=== PATIENT | female | born 1975 | race Caucasian/White ===

== ENCOUNTER 2016-07-24 18:17 | Emergency (ER) | payer BC ==
[2016-07-24 20:19] VITALS: BP 103/77
--- NOTE | 2016-07-24 20:30 | UC ---
Skin Complaint HPI - HPI Summary HPI Summary: The patient comes in today for: 1. Stray cat bite to left DIP joint area of the left index finger. Onset: 3 hours ago. Palliative/provocative: Nothing makes the joint better or worse including full flexion. Quality: No pain. Region: Dorsum of the DIP joint of the left index finger. Severity: 0/10 Time: Constant. Associated symptoms: There was a little bit of blood with the bite. She does not know how deep the bite was. Last tetanus: More than 10 years ago. * - History of Current Complaint Chief Complaint: UCBiteInjury Time Seen by Provider: 07/24/16 20:21 Stated Complaint: CAT BITE Hx Obtained From: Patient Hx Last Menstrual Period: 06/28/16 - Allergy/Home Medications Allergies/Adverse Reactions: Allergies Allergy/AdvReac Type Severity Reaction Status Date / Time ENVIRONMENTAL Allergy Rash Uncoded 07/24/16 20:19 Home Medications: Home Medications DOXYcycline CAP(*) [DOXYcycline 100MG CAP(*)] 100 mg PO BID 07/24/16 [History Confirmed 07/24/16] Review of Systems Constitutional: Negative Skin: Negative Eyes: Negative ENT: Negative Respiratory: Negative Cardiovascular: Negative Gastrointestinal: Negative Genitourinary: Negative All Other Systems Reviewed And Are Negative: Yes PMH/Surg Hx/FS Hx/Imm Hx Previously Healthy: No - Various pain syndrome, and Lyme disease. Endocrine History Of: Denies: Diabetes, Thyroid Disease, Hyperthyroidism, Hypothyroidism, Dyslipidemia Cardiovascular History Of: Denies: Cardiac Disorders, Hypertension, Pacemaker/ICD, Myocardial Infarction , Congestive Heart Failure, Atrial Fibrillation, Deep Vein Thrombosis, Bleeding Disorders Respiratory History Of: Denies: COPD, Asthma, Bronchitis, Pneumonia, Pulmonary Embolism GI/ History Of: Denies: Gastroesophageal Reflux, Ulcer, Gastrointestinal Bleed, Gall Bladder Disease, Kidney Stones, Diverticulitis, Renal Disease, Urosepsis Neurological History Of: Denies: TIA, CVA, Dementia, Seizures, Migraine Psychological History Of: Reports: Anxiety, Depression - ON MEDS Denies: Bipolar Disorder, Schizophrenia, Post Traumatic Stress Disorder Cancer History Of: Denies: Lung Cancer, Colorectal Cancer, Breast Cancer, Prostate Cancer, Cervical Cancer Other History Of: Negative For: HIV, Hepatitis B, Hepatitis C, Anticoagulant Therapy - Surgical History Surgical History: Yes Surgery Procedure, Year, and Place: RIGHT SHOULDER BURSECTOMY 2011. [facility] 2016 - Family History Known Family History: Negative: Cardiac Disease, Hypertension - Social History Occupation: Employed Full-time Alcohol Use: None Substance Use Type: None Smoking Status (MU): Smoker, Current Status Unknown Type: Cigarettes When Did the Patient Quit Smoking/Using Tobacco: 2 weeks ago Household Exposure Type: Cigarettes - Immunization History Most Recent Influenza Vaccination: no Physical Exam Triage Information Reviewed: Yes Appearance: Well-Appearing, No Pain Distress, Well-Nourished Vital Signs: Initial Vital Signs Temp 98.5 F 07/24/16 20:13 Pulse 93 07/24/16 20:13 Resp 16 07/24/16 20:13 BP 103/77 07/24/16 20:13 Pulse Ox 99 07/24/16 20:13 Vital Signs Reviewed: Yes Eyes: Positive: Conjunctiva Clear. Negative: Discharge ENT: Positive: Hearing grossly normal. Negative: Pharyngeal erythema, Nasal congestion, Nasal drainage, TM bulging, TM dull, TM red, Tonsillar swelling, Tonsillar exudate Dental: Negative: Gross Decay/Caries @, Dental Fracture @ Neck: Positive: Supple, Nontender, No Lymphadenopathy. Negative: Nuchal Rigidity Respiratory: Positive: Chest non-tender, Lungs clear, No respiratory distress, No accessory muscle use. Negative: Rhonchi, Wheezing Cardiovascular: Positive: RRR, No Murmur Abdomen Description: Positive: Nontender, No Organomegaly, Soft. Negative: Distended, Guarding Musculoskeletal: Positive: Strength Intact, ROM Intact Neurological: Positive: Alert, Muscle Tone Normal Psychological: Positive: Age Appropriate Behavior, Consolable Skin: Positive: Other - Left distal index finger. There is a small (1-2 mm) puncture wound directly over the DIP joint. No marked redness or swelling. Full flexion with no discomfort.. Negative: rashes, breakdown Course/Dx - Course Course Of Treatment: Patient was told that I was concerned that one of the needle like teeth of the cat penetrated into the joint space and may be settting the patient up for a septic arthritis despite her being on doxycycline. She agreed to treatment with Augmentin along with her doxycycline (for Lyme disease) and Boostrix. - Differential Diagnoses - Skin Complaint Differential Diagnoses: Cellulitis, Impetigo - Diagnoses Provider Diagnoses: Cat bite to the DIP joint of the left index finger. Discharge - Discharge Plan Condition: Stable Disposition: HOME Patient Education Materials: Animal Bite (ED) Referrals: Kiel Joseph MD [Primary Care Provider] - If Needed (Follow up with your primary care provider if you don't continue to do well. If you do well, just finish the antibiotics. ) Additional Instructions: Watch for: 1. Increasing redness 2. Increasing pain 3. Increasing swelling 4. discharge If you see these, please be re-evaluated. The [facility] Department filled out by patient.
[2016-07-24] MEDS ORDERED: Amoxicillin/Clavulanate TAB* 875 MG PO ONE (20:37)
[2016-07-24] MEDS ORDERED: Tetan/Diph/Pertus SYR(Tdap)* 0.5 ML SYR(BOOSTRIX) use SYR IM ONE (20:38)
== END 2016-07-24 21:00 | disposition home or self-care (01) ==
LOC: UCCORT 18:17
DX: S61.231A Puncture wound without foreign body of left index finger without damage to nail, initial encounter (principal); W55.01XA Bitten by cat, initial encounter; Y93.9 Activity, unspecified; Y92.9 Unspecified place or not applicable; Z23 Encounter for immunization; F41.8 Other specified anxiety disorders; Z72.0 Tobacco use
CPT/HCPCS: 90471; 90715; 99212; A9270-GY; G0463

== ENCOUNTER 2016-11-03 18:34 | Inpatient (IN) | payer BC ==
[2016-11-03 20:36] LABS: Hematocrit 43 % (35-47); Hemoglobin 14.1 g/dl (12.0-16.0); Mean Corpuscular HGB Conc 33 g/dl (31-36); Mean Corpuscular Hemoglobin 28 pg (27-31); Mean Corpuscular Volume 87 fL (80-97); Mean Platelet Volume 7 um3 (7.4-10.4); Red Blood Count 4.98 10^6/ul (4.0-5.4); Red Cell Distribution Width 15 % (10.5-15); White Blood Count 13.3 10^3/ul (3.5-10.8)
[2016-11-03 20:50] LABS: BUN/Creatinine Ratio 38.5 (8-20); Calcium 10.4 mg/dL (8.6-10.3); EGFR African American 105.7 (>60); EGFR Non-African American 82.2 (>60); Potassium 3.3 mmol/L (3.5-5.0)
--- NOTE | 2016-11-03 21:11 | RAD ---
INDICATION: Altered mental status COMPARISON: None. TECHNIQUE: Contiguous axial sections of the brain were obtained from the skull base to the vertex without contrast. FINDINGS: The ventricles, cisterns and sulci are within normal limits. The cleary-white matter differentiation is adequately maintained and there is no sulcal effacement. No significant focal abnormality or mass effect is present. There is no evidence for intracranial hemorrhage. No significant focal osseous abnormality is present. The visualized portion of the paranasal sinuses and mastoid air cells appear clear. IMPRESSION: Normal CT of the brain.
[2016-11-03 21:19] LABS: Urine Bacteria Absent (Absent); Urine Bilirubin Negative (Negative); Urine Glucose Negative (Negative); Urine Nitrite Negative (Negative)
[2016-11-03] MEDS ORDERED: NS 0.9% 1000 ML*IV.FLUID IV ONE (21:28)
[2016-11-03] MEDS ORDERED: Sulfamethox/Trimethoprim DS 800/160* TAB PO ONE (21:29)
[2016-11-03] MEDS ORDERED: NS 0.9% 1000 ML* 1,000 ML IV ONE (21:29)
[2016-11-03 21:42] LABS: Benzodiazepine Urine Screen None Detected (None Detect)
[2016-11-04 00:44] LABS: Acetaminophen < 15 mcg/mL; Alcohol < 10 mg/dL (<10); Salicylate < 2.50 mg/dL (<30)
[2016-11-04] MEDS ORDERED: Al Hydrox/Mg Hydrox/Simet LIQ* 30 ML UDC PO PRN (02:46)
[2016-11-04] MEDS ORDERED: Acetaminophen TAB* 325 MG PO PRN (02:46)
[2016-11-04] MEDS ORDERED: ALPRAZolam TAB* 0.5 MG PO PRN (02:47)
--- NOTE | 2016-11-04 02:53 | ED ---
Michael Bain Soohyun, scribed for Al Allen MD on 11/04/16 at 0221 . Progress - Progress Note Progress Note: Signed out at shift change. 9.39 Involuntary admission. Paperwork signed. Pt is stable during ED course and MHE. - Consult/PCP Time Called: 01:57 Course/Dx - Diagnoses Provider Diagnoses: Depression, Suicide ideation The documentation as recorded by the Michael lenz Soohyun accurately reflects the service I personally performed and the decisions made by me, Al Allen MD.
[2016-11-04] MEDS ORDERED: buPROPion SR TAB.SR* 150 MG PO SCH (09:00)
[2016-11-04] MEDS: Vitamin THERAPEUTIC TAB PO SCH (09:10)
[2016-11-04] MEDS: Venlafaxine EXT RELEASE CAP* 75 MG PO SCH (09:13)
--- NOTE | 2016-11-04 17:15 | HP ---
H&P (Free Text) History and Physical: HPI: ---- Patient is a 41yo female with PPHx significant for MDD(Treatment Resistant Depression) with catatonic features, Unspecified Anxiety d/o, Benzodiazepine use d/o, and Anorexia Nervosa who presents catatonic to the [facility] brought in by patient' s mother. Patient was found sitting in the [facility] [place] where she works, likely in a catatonic state since parking there before work. On interview, patient is responsive, but details are gained primarily from patient's who is present for interview. Patient is being treated concurrently for multiple MH issues at 3 clinics. Patient seen at [facility] for ongoing treatment of symptoms of anorexia. Per , patient's weight has improved but patient continues to restrict food and has low po intake. Patient is amenable to Nutrition consult. Patient seen by Dr. Armstrong( psychotherapy) and Dr. Stephenson(psychiatry) in [place], [place]. At this clinic patient is seen for mx of TRD and Anxiety disorder. Patient reports hx of being Rx'd Xanax and Klonopin. In the last month, Xanax was changed to Klonopin as providers at the ECT clinic at [facility] noted poor seizure activity. reports patient has hx of Catatonic episodes, but reports since start of most recent course of ECT last month, these episodes have become more frequent and are associated with an intense gaze, exophthalmic in description and demonstrating a more disorganized/ disoriented TP during her Catatonic episodes. Patient completed her 10th ECT session on Thursday10/31/16 and scheduled for th on Thursday and final session on Thursday11/05/16. CMP ordered as add-on for evaluation of liver and kidney function in setting of Anorexia Nervosa symptoms. TSH, Free T34/T4 ordered as add-on as Thyroid studies not done in ED. Patient reports no hx abuse of alcohol and denies use of illicit substances being involved in this clinical picture. Patient rates the intensity of depression she feels currentlty as 5/10. She reports significant anxiety, but reports no YANEZ, CP, Abd pain or issues with tremor, sweats or other symptoms of Benzo w/d. She endorses recent insomnia and has demonstrating disorganized TP during her Catatonic episodes. Patient reports psychotropic med compliance. Patient denies hx of physical, emotional, or sexual abuse. Patient reports no symptoms of psychosis, nor were any elicited on interview. Past Psych Hx: Inpt - This is patient's 1st Outpt - Patient seen at [facility]. Patient seen by Dr. Armstrong(psychotherapy) and Dr. Stephenson( psychiatry) in [place], [place]. Patient also seen in ECT clinic at [facility]. Suicide attempt Hx / SIB Hx: Patient denies hx of suicide attempt. Patient reports ongoing hx of food restricting and over-exercise. Trauma Hx: Patient denies hx of physical, emotional, or sexual abuse. Substance Hx: Patient denies hx of alcohol abuse and denies hx of illicit substance abuse. Patient has a recent DUI, but was dropped as it was found to be due to a medical condition in the context of Rx Xanax use. Medical Hx: S/P Course of 10 ECT sessions, last on Thursday10/31/16. Denies hx of Seizure d/o. Denies hx of Head Trauma with LOC. Medication Allergies: NONE Family Hx: Patient denies hx of suicide in her family. Social Hx: --------- Patient is to supportive . Patient has minor children in her home. Patient is currently employed. Patient reports no firearms in the home. Patient reports no stockpiles of old Rx pills in the home. Home Meds: S/P Course of 10 ECT sessions, last on Thursday10/31/16 Home Medications Medication Instructions Recorded Confirmed Type RX: Venlafaxine EXT RELEASE CAP* 300 mg PO DAILY 09/07/14 11/03/16 History [Effexor Xr CAP*] RX: buPROPion SR TAB* [Wellbutrin 300 mg PO DAILY 09/07/14 11/03/16 History SR TAB*] Alprazolam [Xanax] 1 mg PO TID PRN 11/03/16 11/03/16 History Quetiapine Fumarate [Seroquel] 400 mg PO BEDTIME 11/03/16 11/03/16 History Vitals: ------ Vital Signs (72 hours) 11/03/16 11/03/16 11/03/16 18:39 19:45 20:34 Temperature 98.1 F 97.3 F Pulse Rate 96 74 69 Respiratory 16 16 16 Rate Blood Pressure 108/73 100/73 107/72 (mmHg) O2 Sat by Pulse 100 96 Oximetry 11/04/16 11/04/16 11/04/16 02:50 08:08 10:47 Temperature 98.4 F 98.2 F Pulse Rate 71 81 Respiratory 16 16 16 Rate Blood Pressure 96/60 105/77 (mmHg) O2 Sat by Pulse 98 100 Oximetry LABS: ----- Laboratory Tests 11/03/16 11/03/16 11/03/16 20:22 20:22 20:54 WBC 13.3 H RBC 4.98 Hgb 14.1 Hct 43 MCV 87 MCH 28 MCHC 33 RDW 15 Plt Count 447 MPV 7 L Sodium 140 Potassium 3.3 L Chloride 103 Carbon Dioxide 30 Anion Gap 7 BUN 30 H Creatinine 0.78 Est GFR ( Amer) 105.7 Est GFR (Non-Af Amer) 82.2 BUN/Creatinine Ratio 38.5 H Glucose 114 H Calcium 10.4 H Urine Color Yellow Urine Appearance Cloudy Urine pH 6.0 Ur Specific Newton 1.031 H Urine Protein 1+(30 mg/dl) H Urine Ketones Negative Urine Blood Negative Urine Nitrate Negative Urine Bilirubin Negative Urine Urobilinogen Negative Ur Leukocyte Esterase Trace H Urine WBC (Auto) 2+(11-20/hpf) H Urine RBC (Auto) Absent Ur Squamous Epith Cells Present H Urine Bacteria Absent Urine Glucose Negative Salicylates Urine Opiates Screen Acetaminophen Ur Barbiturates Screen Ur Phencyclidine Scrn Ur Amphetamines Screen U Benzodiazepines Scrn Urine Cocaine Screen U Cannabinoids Screen Serum Alcohol 11/03/16 11/04/16 20:54 20:22 WBC RBC Hgb Hct MCV MCH MCHC RDW Plt Count MPV Sodium Potassium Chloride Carbon Dioxide Anion Gap BUN Creatinine Est GFR ( Amer) Est GFR (Non-Af Amer) BUN/Creatinine Ratio Glucose Calcium Urine Color Urine Appearance Urine pH Ur Specific Newton Urine Protein Urine Ketones Urine Blood Urine Nitrate Urine Bilirubin Urine Urobilinogen Ur Leukocyte Esterase Urine WBC (Auto) Urine RBC (Auto) Ur Squamous Epith Cells Urine Bacteria Urine Glucose Salicylates < 2.50 Urine Opiates Screen None detected Acetaminophen < 15 Ur Barbiturates Screen None detected Ur Phencyclidine Scrn None detected Ur Amphetamines Screen None detected U Benzodiazepines Scrn None detected Urine Cocaine Screen None detected U Cannabinoids Screen None detected Serum Alcohol < 10 PHYSICAL EXAM: Patient declines PE. Please see H&P documented in the [facility]: Psychiatric Complaint note dated 11/03/16. MSE: ----- Appearance - thin build female, fair hygeine, in moderate distress Behavior - +PMR, cooperative Speech - 1-2 word responses, prosody wnl, delayed, slow responses Eye Contact - intense Mood - "anxious" Affect - depressed TP - initially linear, but derails quickly TC - paucity, recently disorganized Perception - no signs of psychosis noted or reported Orientation - A&Ox2 Cognition - intact Attention - intact Insight - poor Judgement - poor SI / HI - denies both ASSESSMENT: 1. Benzodiazepine withdrawal with catatonic features 2. Benzodiazepine use d/o, severe 3. MDD, R, S with catatonic features (TRD - recent ECT mx) 4. Unspecified Anxiety d/o 5. Anorexia Nervosa PLAN: ------ 1. Continue admission to [facility] for safety and symptom mx. 2. CMP ordered as add-on for evaluation of liver and kidney function in setting of Anorexia Nervosa symptoms. 3. TSH, Free T34/T4 ordered as add-on as not done in ED. 4. Nutrition consulted for evaluation and management of nutrient(protein) intake in setting Anorexia Nervosa symptoms. 5. Continue Effexor at 300mg po daily for depressive symptoms. 6. Will lower dose of Wellbutrin from 300mg to 150mg po daily due to recent insomnia and the meds lowering of seizure threshold during patients current period of Benzo w/d. 7. Will D/C Xanax as patient has hx of use of more than Rx'd or at least oversedation leading to a recent DUI in [place]. 8. After conversion to a long acting Benzodiazepine, will start Klonopin 2mg po qam and 1mg po qhs, with plan to taper off benzodiazepines. 9. Will lower dose of Seroquel from 400mg to 300mg po qhs for insomnia as concomitant administration of Benzos and Seroquel may lead to symptoms of BONI. 10. Continue compiling collateral information from [facility] and providers(Dr. Armstrong and Kaykay ledesma) 11. Patient to participate in milieu activities and groups.
[2016-11-04] MEDS ORDERED: clonazePAM TAB(*) 1 MG PO ONE (19:42)
[2016-11-04] MEDS ORDERED: QUEtiapine TAB* 100 MG PO SCH (21:00)
[2016-11-04] MEDS: QUEtiapine TAB* 300 MG PO SCH (21:37)
--- NOTE | 2016-11-05 06:24 | PN ---
Subjective - Subjective Service Type: 82005 Hosp care 15 min low complexity Subjective: Patient visiting with her on my approach. and this provider are happy to see patient's noticeably improved affect and ability to engaged in conversation vs on admission to the unit yesterday. Patient's affect is full and patient smiles often during the interview. Patient is able to converse nmlly with spontaneous speech displaying linear and GD TP. Patient reports med compliance with Klonopin which is at equal conversion dose of her outpt Rx Xanax 1mg TID. Patient reports no s/e's on this or the lower doses of Seroquel and Wellbutrin. Patient reports the intensity of depression she feels is 3/10. She reports appetite and sleep were wnl yesterday/ today. Patient and report in clarification that patient had only over the past 2 days prior to admission been experiencing these episodes of catatonic features. clarifies that prior, especially during the days patient was not in ECT, patient had episodes of "drunk like states, slurring words and real confused". Patient and informed this was likely Xanax intoxication 2/2 poor po intake on the 1mg TID dose. Patient reports she was supposed to start Klonopin during her ECT course, but never did, only holding administration of Xanax the day before ECT. Patient denies SI/HI and AH/VH. Objective - Appearance Appearance: Thin Framed Dysmorphic Features: No Hygiene: Normal Grooming: Well Kept - Behavior Psychomotor Activities: Normal Exhibits Abnormal Movement: No - Attitude and Relatedness Attitude and Relatedness: Cooperative Eye Contact: Good - Speech Quality: Unpressured Latencies: Normal Quantity: Appropriate - Mood Patient's Decription of Mood: "Good" - Affect Observed Affect: Good Affect Consistent with: Euthymia - Thought Process Patient's Thought Process: Coherent Thought Content: No Passive Wish, No Suicidal Planning, No Homicidal Ideation, No Paranoid Ideation - Sensorium Experiencing Hallucinations: No, Sensorium is Clear Type of Hallucinations: Visual: No, Auditory: No, Command: No - Level of Consciousness Level of Consciousness: Alert Orientation: Yes Intact, Yes Orientated to Time, Yes Orientated to Place, Yes Orientated to Person - Impulse Control Impulse Control: Intact - Insight and Judgement Insight and Judgement: Fair - Group Participation Particating in Group Activities: Yes - Medication Management Medication Management Adherence: Yes Assessment - Assessment Merits Inpatient Hospitalization: For Immediate Safety, For Stabilization Inpatient DSM-IV Dx: 1. Benzodiazepine withdrawal with catatonic features. 2. Benzodiazepine use d/o, severe. 3. MDD, R, S with catatonic features (TRD - recent ECT mx). 4. Unspecified Anxiety d/o. 5. Anorexia Nervosa Plan - Plan Treatment Plan: Name: PARVEEN CARRANZA Birthdate: 1975 [id number] PLAN: ------ 1. Continue admission to [facility] for safety and symptom mx. 2. CMP ordered as add-on for evaluation of liver and kidney function in setting of Anorexia Nervosa symptoms. 3. TSH, Free T34/T4 ordered as add-on as not done in ED. 4. Nutrition consulted for evaluation and management of nutrient(protein) intake in setting Anorexia Nervosa symptoms. 5. Continue Effexor at 300mg po daily for depressive symptoms. 6. Continue Wellbutrin at 150mg po daily with plan to further taper to OFF. 7. Will D/C Xanax as patient has hx of use of more than Rx'd or at least oversedation leading to a recent DUI in [place]. 8. After conversion to a long acting Benzodiazepine, will start Klonopin 2mg po qam and 1mg po qhs, with plan to taper off benzodiazepines. 9. Continue Seroquel 300mg po qhs for insomnia/anxiety with plan to further slowly taper to goal of 100 or to OFF if clinically able as depression now being treated with ECT/Maintenance ECT. 10. Call made to Lane Arcos MD at [facility] ECT clinic#[phone], voicemail left. 11. iSTOP Reference# [id number] run. Patient's last benzo Rx written by Dr. Stephenson on 10/09/16, filled 10/11/16, 30 day supply. Patient has taken. Last Klonopin Rx also written by Dr. Berman, filled 2 months ago, 21 day supply. 12. Continue compiling collateral information from [facility] and providers(Dr. Armstrong and [facility]) 13. Patient to participate in milieu activities and groups. Medications: Current Medications Acetaminophen (Tylenol Tab*) 650 mg PO Q4H PRN PRN Reason: PAIN or TEMP > 101 F Al Hydrox/Mg Hydrox/Simethicone (Maalox Plus*) 30 ml PO Q4H PRN PRN Reason: INDIGESTION Bupropion HCl (Wellbutrin Sr Tab*) 150 mg PO DAILY ST[facility]LEY Clonazepam (Klonopin Tab(*)) 2 mg PO QAM ST[facility] Clonazepam (Klonopin Tab(*)) 1 mg PO BEDTIME [facility] Multivitamins (Theragran Tab*) 1 tab PO DAILY STANLEY Last Admin: 11/04/16 09:10 Dose: 1 tab Quetiapine Fumarate (Seroquel Tab*) 300 mg PO BEDTIME ST[facility] Last Admin: 11/04/16 21:37 Dose: 300 mg Venlafaxine HCl (Effexor Xr Cap*) 300 mg PO DAILY ST[facility]LEY Last Admin: 11/04/16 09:13 Dose: 300 mg - Discharge Plan Discharge Plan: Outpatient Follow Up
[2016-11-05] MEDS: Vitamin THERAPEUTIC TAB PO SCH (07:37)
[2016-11-05] MEDS: clonazePAM TAB(*) 1 MG PO SCH ×2 (07:38→20:18)
[2016-11-05] MEDS: buPROPion SR TAB.SR* 150 MG PO SCH (07:39)
[2016-11-05] MEDS: Venlafaxine EXT RELEASE CAP* 75 MG PO SCH (07:39)
[2016-11-05 07:56] LABS: BUN/Creatinine Ratio 27.1 (8-20); Calcium 9.3 mg/dL (8.6-10.3); EGFR African American 95.8 (>60); EGFR Non-African American 74.5 (>60); Globulin 2.6 g/dL (2-4); Potassium 3.7 mmol/L (3.5-5.0); Total Bilirubin 0.7 mg/dL (0.2-1.0); Total Protein 6.6 g/dL (6.4-8.9)
[2016-11-05 07:57] LABS: HDL Cholesterol 54.1 mg/dL
[2016-11-05 08:14] LABS: TSH (Thyroid Stimulating Horm) 1.4 mcIU/mL (0.34-5.60)
[2016-11-05 08:20] LABS: Free T4 0.87 ng/dL (0.61-1.12)
--- NOTE | 2016-11-05 11:53 | PN ---
MHU: Group Therapy Note - Service Type Service Type: [id number] Group Psychotherapy - Cognitive Behavioral Group Therapy ( CBT):Patient was attentive and participatory in CBT programming this morning, and remained in good behavioral control. Patient expressed positive insights regarding relevant treatment interventions and goals.
[2016-11-05] MEDS: QUEtiapine TAB* 300 MG PO SCH (20:18)
[2016-11-06] MEDS: buPROPion SR TAB.SR* 150 MG PO SCH (08:13)
[2016-11-06] MEDS: clonazePAM TAB(*) 1 MG PO SCH ×2 (08:13→19:52)
[2016-11-06] MEDS: Venlafaxine EXT RELEASE CAP* 75 MG PO SCH (08:14)
[2016-11-06] MEDS: Vitamin THERAPEUTIC TAB PO SCH (08:14)
--- NOTE | 2016-11-06 13:15 | PN ---
MHU: Group Therapy Note - Service Type Service Type: [id number] Group Psychotherapy - Cognitive Behavioral Group Therapy ( CBT):Patient was attentive and participatory in CBT programming this morning, and remained in good behavioral control. Patient expressed positive insights regarding relevant treatment interventions and goals.
--- NOTE | 2016-11-06 14:54 | PN ---
Subjective - Subjective Service Type: 35309 Hosp care 15 min low complexity Subjective: Patient visiting her mother on my approach. Patient continues display full mood and smiles often during the interview. Patient again is linear in TP and spontaneous and descriptive of her clinical state on interview. She reports feeling cognitive and physical abilities are back to baseline. Per mother's request as to why her daughter was "frozen" was discussed. Mother and patient were educated on the etiology and symptoms of catatonia. Patient reports she experienced dramatic improvement in mood and function after ECT and reports this is why she abruptly stopped all her meds(including Xanax). She reports not being told the risks of abrupt d/c of Xanax or Seroquel. She reports feeling ready for discharge tomorrow and would like team to schedule her with a new psychiatrist for med f/u appt. She reports her mood as "good" and denies SI/HI and AH/VH. Objective - Appearance Appearance: Well Developed/Nourished, Thin Framed Dysmorphic Features: No Hygiene: Normal Grooming: Fairly Well Kept - Behavior Psychomotor Activities: Normal Exhibits Abnormal Movement: No - Attitude and Relatedness Attitude and Relatedness: Cooperative Eye Contact: Good - Speech Quality: Unpressured Latencies: Normal Quantity: Appropriate - Mood Patient's Decription of Mood: "Good" - Affect Observed Affect: Fair Affect Consistent with: Euthymia - Thought Process Patient's Thought Process: Coherent Thought Content: No Passive Wish, No Suicidal Planning, No Homicidal Ideation, No Paranoid Ideation - Sensorium Experiencing Hallucinations: No, Sensorium is Clear Type of Hallucinations: Visual: No, Auditory: No, Command: No - Level of Consciousness Level of Consciousness: Alert Orientation: Yes Intact, Yes Orientated to Time, Yes Orientated to Place, Yes Orientated to Person - Insight and Judgement Insight and Judgement: Fair - Group Participation Particating in Group Activities: Yes - Medication Management Medication Management Adherence: Yes Assessment - Assessment Merits Inpatient Hospitalization: For Immediate Safety, For Stabilization Inpatient DSM-IV Dx: 1. Benzodiazepine withdrawal with catatonic features. 2. Benzodiazepine use d/o, severe. 3. MDD, R, S with catatonic features (TRD - recent ECT mx). 4. Unspecified Anxiety d/o. 5. Anorexia Nervosa Plan - Plan Treatment Plan: Name: PARVEEN CARRANZA Birthdate: 1975 [id number] PLAN: ------ 1. Continue admission to [facility] for safety and symptom mx. 2. CMP ordered as add-on for evaluation of liver and kidney function in setting of Anorexia Nervosa symptoms---all wnl. 3. TSH, Free T34/T4 ordered as add-on as not done in ED---all wnl. 4. Nutrition consulted for evaluation and management of nutrient(protein) intake in setting Anorexia Nervosa symptoms. 5. Continue Effexor at 300mg po daily for depressive symptoms. 6. Continue Wellbutrin at 150mg po daily with plan to further taper to OFF. 7. Will D/C Xanax as patient has hx of use of more than Rx'd or at least oversedation leading to a recent DUI in [place]. 8. Continue Klonopin 2mg po qam and 1mg po qhs, with plan to taper off benzodiazepines. 9. Continue Seroquel 300mg po qhs for insomnia/anxiety with plan to further slowly taper to goal of 100 or to OFF if clinically able as depression now being treated with ECT/Maintenance ECT. 10. Call made to Lane Arcos MD at [facility] ECT clinic#[phone], voicemail left. 11. [employer] Reference# [id number] run. Patient's last benzo Rx written by Dr. Stephenson on 10/09/16, filled 10/11/16, 30 day supply. Patient has taken. Last Klonopin Rx also written by Dr. Berman, filled 2 months ago, 21 day supply. 12. Patient requesting new pscyhiatrist/[facility] referral for post-hospital discharge f/u appt. 13. Patient to participate in milieu activities and groups. Medications: Current Medications Acetaminophen (Tylenol Tab*) 650 mg PO Q4H PRN PRN Reason: PAIN or TEMP > 101 F Al Hydrox/Mg Hydrox/Simethicone (Maalox Plus*) 30 ml PO Q4H PRN PRN Reason: INDIGESTION Bupropion HCl (Wellbutrin Sr Tab*) 150 mg PO DAILY [facility] Last Admin: 11/06/16 08:13 Dose: 150 mg Clonazepam (Klonopin Tab(*)) 2 mg PO QAM [facility] Last Admin: 11/06/16 08:13 Dose: 2 mg Clonazepam (Klonopin Tab(*)) 1 mg PO BEDTIME [facility] Last Admin: 11/05/16 20:18 Dose: 1 mg Multivitamins (Theragran Tab*) 1 tab PO DAILY [facility] Last Admin: 11/06/16 08:14 Dose: 1 tab Quetiapine Fumarate (Seroquel Tab*) 300 mg PO BEDTIME [facility] Last Admin: 11/05/16 20:18 Dose: 300 mg Venlafaxine HCl (Effexor Xr Cap*) 300 mg PO DAILY [facility] Last Admin: 11/06/16 08:14 Dose: 300 mg
[2016-11-06] MEDS: QUEtiapine TAB* 300 MG PO SCH (19:52)
[2016-11-07] MEDS: Vitamin THERAPEUTIC TAB PO SCH (07:30)
[2016-11-07] MEDS: clonazePAM TAB(*) 1 MG PO SCH (07:30)
[2016-11-07] MEDS: Venlafaxine EXT RELEASE CAP* 75 MG PO SCH (07:30)
[2016-11-07] MEDS: buPROPion SR TAB.SR* 150 MG PO SCH (07:30)
[2016-11-07 08:26] VITALS: BP 93/66
--- NOTE | 2016-11-07 11:32 | PN ---
[facility]: Group Therapy Note - Service Type Service Type: [id number] Group Psychotherapy - Cognitive Behavioral Group Therapy ( CBT):Patient was attentive and participatory in CBT programming this morning, and remained in good behavioral control. Patient expressed positive insights regarding relevant treatment interventions and goals.
--- NOTE | 2016-11-07 12:00 | DS ---
Subjective - Subjective Service Types: 75138 Hosp DC Day Mgmt simple under 30 min Treatment Course & Assessment Inpatient DSM-IV Dx: 1. Benzodiazepine withdrawal with catatonic features. 2. Benzodiazepine use d/o, severe. 3. MDD, R, S with catatonic features (TRD - recent ECT mx). 4. Unspecified Anxiety d/o. 5. Anorexia Nervosa Discharge Planning - Discharge Planning Medications: Current Medications Acetaminophen (Tylenol Tab*) 650 mg PO Q4H PRN PRN Reason: PAIN or TEMP > 101 F Al Hydrox/Mg Hydrox/Simethicone (Maalox Plus*) 30 ml PO Q4H PRN PRN Reason: INDIGESTION Bupropion HCl (Wellbutrin Sr Tab*) 150 mg PO DAILY [facility] Last Admin: 11/07/16 07:30 Dose: 150 mg Clonazepam (Klonopin Tab(*)) 2 mg PO QAM [facility] Last Admin: 11/07/16 07:30 Dose: 2 mg Clonazepam (Klonopin Tab(*)) 1 mg PO BEDTIME [facility] Last Admin: 11/06/16 19:52 Dose: 1 mg Multivitamins (Theragran Tab*) 1 tab PO DAILY [facility] Last Admin: 11/07/16 07:30 Dose: 1 tab Quetiapine Fumarate (Seroquel Tab*) 300 mg PO BEDTIME [facility] Last Admin: 11/06/16 19:52 Dose: 300 mg Venlafaxine HCl (Effexor Xr Cap*) 300 mg PO DAILY [facility] Last Admin: 11/07/16 07:30 Dose: 300 mg Discharge Planning: Prescriptions provided for discharge [] Yes [] No Follow up care details as per social work arrangements. Patient response to discharge plan: [] eager for discharge [] agreeable with discharge plan [] ambivalent about discharge [] disagrees with discharge today
== END 2016-11-07 12:35 | disposition home or self-care (01) | DRG 776 ==
LOC: ED 18:34 → BSU 11-04 03:19
PROVIDERS: ADMIT Psychiatry & Neurology Psychiatry; ATTEND Psychiatry & Neurology Psychiatry
PROC: GZHZZZZ Group Psychotherapy (ICD-10-PCS; principal; 2016-11-04)
DX: F19.939 Other psychoactive substance use, unspecified with withdrawal, unspecified (principal); F33.2 Major depressive disorder, recurrent severe without psychotic features; F50.00 Anorexia nervosa, unspecified; F41.9 Anxiety disorder, unspecified
CPT/HCPCS: 36415; 70450; 80048; 80053; 80061; 80307; 80320; 80329; 81003; 81015; 83036; 84439; 84443; 84481; 85027; 87086; 90853; 99222; 99231; 99238; A9270-GY; G0480

== ENCOUNTER → 2017-02-16 20:05 | Emergency (ER) | payer BC ==
[2017-02-16 21:36] LABS: Hematocrit 39 % (35-47); Mean Corpuscular HGB Conc 34 g/dl (31-36); Mean Corpuscular Hemoglobin 29 pg (27-31); Mean Corpuscular Volume 87 fL (80-97); Mean Platelet Volume 7 um3 (7.4-10.4); Red Blood Count 4.46 10^6/ul (4.0-5.4); Red Cell Distribution Width 14 % (10.5-15); White Blood Count 19.3 10^3/ul (3.5-10.8)
[2017-02-16 21:50] LABS: ALT 12 U/L (7-52); AST 11 U/L (13-39); Albumin 4.1 g/dL (3.2-5.2); Alkaline Phosphatase 55 U/L (34-104); Anion Gap 6 mmol/L (2-11); BUN/Creatinine Ratio 19.1 (8-20); Blood Urea Nitrogen 13 mg/dL (6-24); CO2 Carbon Dioxide 25 mmol/L (22-32); Calcium 9.3 mg/dL (8.6-10.3); Chloride 103 mmol/L (101-111); EGFR African American 123.9 (>60); EGFR Non-African American 96.3 (>60); Globulin 2.8 g/dL (2-4); Glucose 116 mg/dL (70-100); Potassium 3.7 mmol/L (3.5-5.0); Sodium 134 mmol/L (133-145); Total Protein 6.9 g/dL (6.4-8.9)
[2017-02-16 22:05] LABS: Acetaminophen < 15 mcg/mL; Alcohol < 10 mg/dL (<10); Salicylate < 2.50 mg/dL (<30)
[2017-02-16 22:19] LABS: TSH (Thyroid Stimulating Horm) 1.64 mcIU/mL (0.34-5.60)
[2017-02-16 23:10] VITALS: BP 106/69
[2017-02-16 23:11] LABS: Urine Bilirubin Negative (Negative); Urine Glucose Negative (Negative); Urine Nitrite Negative (Negative)
[2017-02-16 23:30] LABS: Benzodiazepine Urine Screen Presumptive Positive (None Detect)
--- NOTE | 2017-02-17 06:54 | ED ---
Sharon Bain Thomas, scribed for Elysia Laughlin MD on 02/16/17 at 2106 . Psychiatric Complaint - HPI Summary HPI Summary: The pt is a 41 y/o F BIB her mother for a voluntary mental health examination. The mother provides the patients history as the patient prefers not to speak. The patient is 6 weeks confirmed via ultrasound in the last few days. She found out she was three weeks ago and she is upset that she is . She has been sleeping excessively for the last two days. She is soft spoken and appears depressed. The patient denies SI and HI. She denies any vaginal bleeding or cramps. She is on Seroquel, Trazodone, and Zoloft. The patient has been undergoing electroconvulsive therapy treatments three times a week. - History Of Current Complaint Chief Complaint: EDMentalHealth Time Seen by Provider: 02/16/17 20:31 Hx Obtained From: Patient Hx Last Menstrual Period: 06/28/16 Onset/Duration: Lasting Days - 2, Still Present Timing: Constant Severity Currently: Moderate Character: Depressed Aggravating Factor(s): Nothing Alleviating Factor(s): Nothing Associated Signs And Symptoms: Positive: Sleep Disturbance, Social Withdrawal Related History: Positive For: Prior Psychiatric Issues Has Suicidal: Denies: Thoughts Has Homicidal: Denies: Thoughts - Allergies/Home Medications Allergies/Adverse Reactions: Allergies Allergy/AdvReac Type Severity Reaction Status Date / Time ENVIRONMENTAL Allergy Rash Uncoded 02/16/17 20:23 Home Medications: Home Medications Hydroxyzine Pamoate [Vistaril] 25 mg PO QID PRN 02/16/17 [History Confirmed ] Sertraline* [Zoloft*] 100 mg PO BID 02/16/17 [History Confirmed 02/16/17] traZODone TAB* [Desyrel TAB*] 50 mg PO BEDTIME PRN 02/16/17 [History Confirmed 02/16/17] PMH/Surg Hx/FS Hx/Imm Hx Previously Healthy: No Endocrine/Hematology History: Denies: Hx Anticoagulant Therapy, Hx Diabetes, Hx Thyroid Disease Cardiovascular History: Denies: Hx Congestive Heart Failure, Hx Deep Vein Thrombosis, Hx Hypertension , Hx Myocardial Infarction, Hx Pacemaker/ICD Respiratory History: Denies: Hx Asthma, Hx Chronic Obstructive Pulmonary Disease (COPD), Hx Lung Cancer, Hx Pneumonia, Hx Pulmonary Embolism GI History: Denies: Hx Gall Bladder Disease, Hx Gastrointestinal Bleed, Hx Ulcer, Hx Urosepsis, Other GI Disorders History: Denies: Hx Kidney Stones, Hx Renal Disease Musculoskeletal History: Reports: Hx Bursitis - RIGHT SHOULDER Sensory History: Denies: Hx Contacts or Glasses, Hx Hearing Aid Opthamlomology History: Denies: Hx Contacts or Glasses Neurological History: Denies: Hx Dementia, Hx Migraine, Hx Seizures, Hx Transient Ischemic Attacks (TIA), Other Neuro Impairments/Disorders Psychiatric History: Reports: Hx Anxiety, Hx Eating Disorder, Hx Depression - ON MEDS, Hx Community Mental Health Tx Denies: Hx Schizophrenia, Hx Bipolar Disorder, Hx Suicide Attempt, Hx of Violent Episodes Against Others Comment Only: Other Psychiatric Issues/Disorders - receiving ECT for the past few weeks per - Surgical History Surgery Procedure, Year, and Place: RIGHT SHOULDER BURSECTOMY 2012. [facility] 2016 Hx Anesthesia Reactions: No Infectious Disease History: No Infectious Disease History: Denies: Hx Clostridium Difficile, Hx Hepatitis, Hx Human Immunodeficiency Virus (HIV), Hx of Known/Suspected MRSA, Hx Shingles, Hx Tuberculosis, Hx Known/ Suspected VRE, Hx Known/Suspected VRSA, History Other Infectious Disease, Traveled Outside the [place] in Last 30 Days - Family History Known Family History: Negative: Cardiac Disease, Hypertension - Social History Alcohol Use: Occasionally Hx Substance Use: No Substance Use Type: Reports: None Hx Tobacco Use: No Smoking Status (MU): Never Smoked Tobacco Type: Cigarettes Amount Used/How Often: patient states that she is a non-smoker and never smoked before Length of Time of Smoking/Using Tobacco: patient denies all tobacco use Have You Smoked in the Last Year: No Review of Systems Negative: other - vaginal bleeding, cramps Positive: Depressed, Other - Sleep disturbance; NEGATIVE: SI, HI All Other Systems Reviewed And Are Negative: Yes Physical Exam - Summary Physical Exam Summary: VITAL SIGNS: Reviewed. GENERAL: Patient is a well-developed and nourished female who is lying comfortable in the stretcher. Patient is not in any acute respiratory distress. HEAD AND FACE: No signs of trauma. ~No ecchymosis, hematomas or skull depressions. No sinus tenderness. EYES: PERRLA, EOMI x 2, No injected conjunctiva, no nystagmus. EARS: Hearing grossly intact. Ear canals and tympanic membranes are within normal limits. MOUTH: Oropharynx within normal limits. NECK: Supple, trachea is midline, no adenopathy, no JVD, no carotid bruit, no c- spine tenderness, neck with full ROM. CHEST: Symmetric, no tenderness at palpation LUNGS: Clear to auscultation bilaterally. No wheezing or crackles. CVS: Regular rate and rhythm, S1 and S2 present, no murmurs or gallops appreciated. ABDOMEN: Soft, non-tender. No signs of distention. No rebound no guarding, and no masses palpated. Bowel sounds are normal. EXTREMITIES: FROM in all major joints, no edema, no cyanosis or clubbing. NEURO: Alert and oriented x 3. No acute neurological deficits. Speech is normal and follows commands. SKIN: Dry and warm PSYCHIATRIC: She seems sad. She is self-contained. She is somewhat catatonic. She follows commands and answers questions briefly. She is cooperative. She denies any suicidal or homicidal ideation. Triage Information Reviewed: Yes Vital Signs On Initial Exam: Initial Vitals Temp Pulse Resp BP Pulse Ox 99.0 F 104 16 108/71 99 02/16/17 20:15 02/16/17 20:15 02/16/17 20:15 02/16/17 20:15 02/16/17 20:15 Vital Signs Reviewed: Yes Diagnostics - Vital Signs Vital Signs Temp Pulse Resp BP Pulse Ox 02/16/17 20:15 99.0 F 104 16 108/71 99 - Laboratory Result Diagrams: 02/16/17 21:27 02/16/17 21:27 Lab Statement: Any lab studies that have been ordered have been reviewed, and results considered in the medical decision making process. Course/Dx - Course Assessment/Plan: The pt is a 41 y/o F BIB her mother for a voluntary mental health examination. The mother provides the patients history as the patient prefers not to speak. The patient is 6 weeks confirmed via ultrasound in the last few days. She found out she was three weeks ago and she is upset that she is . She has been sleeping excessively for the last two days. She is soft spoken and appears depressed. The patient denies SI and HI. She denies any vaginal bleeding or cramps. She is on Seroquel, Trazodone, and Zoloft. The patient has been undergoing electroconvulsive therapy treatments three times a week. Bloodwork was obtained. Toxicology and drug screen was obtained. The patient was cleared for a mental health evaluation. After mental health evaluation, the patient will be signed out to the next ED attending awaiting disposition. - Differential Dx/Clinical Impression Provider Diagnosis: Depression, pending psych eval Discharge - Discharge Plan Condition: Fair Disposition: OTHER Discharge Disposition Comment: Signed out to the next ED attending pending psych eval. Referrals: Kiel Joseph MD [Primary Care Provider] - The documentation as recorded by the Sharon lenz Thomas accurately reflects the service I personally performed and the decisions made by , Elysia Laughlin MD.
--- NOTE | 2017-02-18 13:13 | ED ---
Ankush Bain Angela, scribed for Cory Joe MD on 02/17/17 at 0927 . Progress - Progress Note Progress Note: This pt was signed out by Dr. Laughlin, pending disposition, awaiting MHE. The pt was evaluated by Dr. Ferraro, who recommends discharge. Pt will be discharged with follow up outpatient from her doctor in [place] to complete her last treatment of ECT. Pt will be discharged to home in stable condition with a diagnosis of depression. Course/Dx - Diagnoses Provider Diagnoses: Depression The documentation as recorded by the Ankush lenz Angela accurately reflects the service I personally performed and the decisions made by Heath bellamy Walter, MD.
== END ==
LOC: ED 20:05
DX: O99.341 Other mental disorders complicating pregnancy, first trimester (principal); Z3A.01 Less than 8 weeks gestation of pregnancy
CPT/HCPCS: 36415; 80053; 80307; 80320; 80329; 81003; 84443; 85025; 99284; G0480

== ENCOUNTER 2017-03-12 08:13 | Day surgery (SDC) | payer BC ==
[2017-03-12] MEDS ORDERED: Buffered Lidocaine 0.9% SYRIN* 5 ML/SYR SYRINGE INTRADERM ONE (08:37)
[2017-03-12] MEDS ORDERED: DiMENhydriNATE IV* 50 MG/ML VIAL IV PUSH PRN (08:39)
[2017-03-12] MEDS ORDERED: HYDROcodone/ACETAMIN 5-325 MG* 1 TAB PO PRN (08:39)
[2017-03-12] MEDS ORDERED: Ondansetron INJ* 2 MG/ML VIAL IV PRN (08:39)
[2017-03-12] MEDS ORDERED: Acetaminophen TAB* 325 MG PO PRN (08:39)
[2017-03-12] MEDS ORDERED: fentaNYL* 50 MCG/ML 2 ML VIAL (100 MCG VIAL) IV PRN (08:39)
[2017-03-12] MEDS ORDERED: PROCHLORPERAZINE INJ 5 MG/ML 2 ML VIAL IV PRN (08:39)
[2017-03-12] MEDS ORDERED: Midazolam* 1 MG/ML 2 ML VIAL (2 MG) ONE ×2 (08:54→09:31)
[2017-03-12] MEDS ORDERED: fentaNYL* 50 MCG/ML 2 ML VIAL (100 MCG VIAL) ONE ×2 (08:54→09:35)
[2017-03-12] MEDS ORDERED: Lidocaine 1% INJ* 10 MG/ML 30 ML SDV ONE (09:11)
[2017-03-12 09:16] LABS: Hematocrit 38 % (35-47); Hemoglobin 12.7 g/dl (12.0-16.0); Mean Corpuscular HGB Conc 33 g/dl (31-36); Mean Corpuscular Hemoglobin 29 pg (27-31); Mean Corpuscular Volume 87 fL (80-97); Mean Platelet Volume 8 um3 (7.4-10.4); Red Blood Count 4.42 10^6/ul (4.0-5.4); Red Cell Distribution Width 14 % (10.5-15); White Blood Count 11.5 10^3/ul (3.5-10.8)
[2017-03-12] MEDS ORDERED: diPHENhydraMINE IV* 50 MG/ML 1 ml VIAL (BENADRYL) ONE (09:33)
[2017-03-12] MEDS ORDERED: Lidocaine 2% PF * 5 ML VIAL ONE (09:54)
[2017-03-12] MEDS ORDERED: Dexamethasone IV* 4 MG/ML 1 ML (4 MG) ONE (09:54)
[2017-03-12] MEDS ORDERED: Chloroprocaine 2%* 20 ML VIAL ONE (09:54)
[2017-03-12] MEDS ORDERED: Propofol* 10 MG/ML 20 ML BTL IV PUSH ONE (09:54)
[2017-03-12] MEDS ORDERED: OXYTOCIN* 10 UNITS/ML 1 ML VIAL ONE ×2 (09:56→10:13)
[2017-03-12 11:05] VITALS: BP 115/82
[2017-03-12] MEDS ORDERED: oxyCODONE/Acetamin 5/325 MG* TAB ONE (11:16)
--- NOTE | 2017-03-12 14:53 | OP ---
OPERATIVE PROCEDURE: DATE OF OPERATION: 03/12/17 DATE OF : 79 SURGEON: Darius Ugarte MD ANESTHESIA: Spinal. PRE-OP DIAGNOSIS: Missed . POST-OP DIAGNOSES: Missed . PROCEDURE: D and C. COMPLICATIONS: None. FINDINGS: On exam under anesthesia, the uterus was retroverted. Cervix, vagina, vulva appeared norm al. DESCRIPTION OF PROCEDURE: The patient was identified, procedure was identified as a D and C. The pa tient was taken to the operating room, prepped and draped in the usual fashion in the dorsal lithotom y position under spinal anesthesia. Two single- tooth tenaculums were placed on the anterior lip of the cervix. Cervix was easily dilated up to a #31 Horta dilator. A #10 suction curette was inserted , but it would not pass through the internal os and so a #8 suction curette was utilized to do suctio n curettage with moderate amounts of tissue. The sharp curette was inserted and sharp curettage perf ormed until a gritty sensation was felt throughout the circumference. The polyp forceps were inserte d, but no further tissue was obtained this way. The suction was reinserted and again no further tiss ue was obtained. A gritty sensation was felt throughout the circumference and all instruments remove d from the vagina. Good hemostasis was verified. All sponge and instrument counts were correct. e patient returned to the recovery room in stable condition. [id number]/[facility] #: [id number]
== END 2017-03-12 11:39 | disposition home or self-care (01) ==
LOC: OR 08:13
PROVIDERS: ATTEND Obstetrics & Gynecology
DX: O02.1 Missed abortion (principal); F41.8 Other specified anxiety disorders; Z87.891 Personal history of nicotine dependence
CPT/HCPCS: 36415; 85025; 86850; 86900; 86901; 88305; A9270-GY; J1100; J1200; J2250; J2400; J2590; J2704; J3010